=== PATIENT | female | born 1960 | race Two or more races ===

== ENCOUNTER 2017-09-18 20:23 | Inpatient (IN) | payer OTHER ==
[~2017-09-18] VITALS: Ht 152.4 cm; Wt 6.4 kg
[~2017-09-18 20:23] MED LIST: IOPHEN DM-100 MG/5 M PO; LEVAQUIN750 MG PO; MEDROL4 MG PO; Medrol dose pack; Singulair 10MG PO
[2017-09-18] MEDS ORDERED: ATROVENT HFA12.9 GM (20:40)
[2017-09-18] MEDS ORDERED: PREDNISOLONE5 G1 (20:40)
[2017-09-18] MEDS ORDERED: ALBUTEROL (20:40)
[2017-09-18] MEDS ORDERED: BUMETANIDE2 MG (20:40)
[2017-09-20] MEDS ORDERED: AZITHROMYCIN500 MG PO (12:06)
== END 2017-09-20 14:13 | disposition home or self-care (01) | DRG 191 ==
LOC: ER 20:23 → MEDI 09-19 10:06
PROC: 3E0F7GC Introduction of Other Therapeutic Substance into Respiratory Tract, Via Natural or Artificial Opening (ICD-10-PCS; principal; 2017-09-19)
PROC: 4A033R1 Measurement of Arterial Saturation, Peripheral, Percutaneous Approach (ICD-10-PCS; 2017-09-19)
DX: J44.1 Chronic obstructive pulmonary disease with (acute) exacerbation (principal); J45.31 Mild persistent asthma with (acute) exacerbation; J20.9 Acute bronchitis, unspecified; J44.0 Chronic obstructive pulmonary disease with (acute) lower respiratory infection; F17.210 Nicotine dependence, cigarettes, uncomplicated; M79.7 Fibromyalgia; R09.02 Hypoxemia; M81.0 Age-related osteoporosis without current pathological fracture

== ENCOUNTER 2018-05-23 03:26 | Emergency (ER) | payer OTHER ==
[~2018-05-23] VITALS: Ht 152.4 cm; Wt 61.7 kg
[~2018-05-23 03:26] MED LIST changes: +ALBUTEROL; +ATROVENT HFA12.9 GM; +AZITHROMYCIN500 MG PO; +BUMETANIDE2 MG; +PREDNISOLONE5 G1
[2018-05-23] MEDS ORDERED: ADVAIR HFA 115/12 GM (03:44)
[2018-05-23] MEDS ORDERED: VENTOLIN HFA18 GM (03:45)
[2018-05-23] MEDS ORDERED: ALBUTEROL1.25 MG/3 (03:45)
[2018-05-23] MEDS ORDERED: ATROVENT HFA12.9 GM (03:45)
[2018-05-23] MEDS ORDERED: MEDROLPACK PO (12:40)
[2018-05-23] MEDS ORDERED: TUSSIONEX PENN115 ML PO (12:40)
[2018-05-23] MEDS ORDERED: BUDEO.25 IH (12:40)
[2018-05-23] MEDS ORDERED: TESSALON PERLE100 M1 PO (12:40)
== END 2018-05-23 13:04 | disposition home or self-care (01) ==
LOC: ER 03:26
DX: J45.998 Other asthma (principal)

== ENCOUNTER 2019-01-30 00:36 | Emergency (ER) | payer OTHER ==
[~2019-01-30] VITALS: Ht 152.4 cm; Wt 63.5 kg
[~2019-01-30 00:36] MED LIST changes: +ADVAIR HFA 115/12 GM; +ALBUTEROL1.25 MG/3; +BUDEO.25 IH; +MEDROLPACK PO; +TESSALON PERLE100 M1 PO; +TUSSIONEX PENN115 ML PO; +VENTOLIN HFA18 GM
[2019-01-30] MEDS ORDERED: IPRAT-ALBUT 0.5-3 ML IH (11:40)
[2019-01-30] MEDS ORDERED: SYMBICORT 16010.2 GM IH (11:40)
[2019-01-30] MEDS ORDERED: ZITHROMAX500 MG PO (11:40)
[2019-01-30] MEDS ORDERED: TESSALON PERLE100 MG PO (11:40)
[2019-01-30] MEDS ORDERED: MEDROLPACK PO (11:40)
[2019-01-30] MEDS ORDERED: TUSICOF LIQUID120 ML PO (11:40)
== END 2019-01-30 14:13 | disposition home or self-care (01) ==
LOC: ER 00:36
DX: J44.1 Chronic obstructive pulmonary disease with (acute) exacerbation (principal)

== ENCOUNTER 2021-01-05 07:58 | Emergency (ER) | payer OTHER ==
[~2021-01-05] VITALS: Ht 152.4 cm; Wt 64.4 kg
[~2021-01-05 07:58] MED LIST changes: +IPRAT-ALBUT 0.5-3 ML IH; +SYMBICORT 16010.2 GM IH; +TESSALON PERLE100 MG PO; +TUSICOF LIQUID120 ML PO; +ZITHROMAX500 MG PO
== END 2021-01-06 05:53 | disposition home or self-care (01) ==
LOC: ER 07:58
DX: J45.998 Other asthma (principal); J44.1 Chronic obstructive pulmonary disease with (acute) exacerbation; Z72.0 Tobacco use; Z03.818 Encounter for observation for suspected exposure to other biological agents ruled out